=== PATIENT | female | born 1995 | race Caucasian/White ===

== ENCOUNTER 2024-04-24 09:18 | Emergency (ER) | payer OTHER, SELFPAY ==
[2024-04-24 09:26] VITALS: BP 118/59; PULSE 75; RESP 20; TEMP 37; O2SAT 99; BMI 28.3
--- NOTE | 2024-04-24 09:41 | ED.GENADULT ---
HPI - General Adult General Chief complaint: Recheck/Abnormal Lab/Rx Stated complaint: needs methadone dose Time Seen by Provider: 04/24/24 09:40 Source: patient Mode of arrival: ambulatory Limitations: no limitations History of Present Illness ED Provider: KIRILL CHRISTIANSON PA-C HPI narrative: 29 year old female with pmhx significant for polysubstance use presents to the ED today from [facility] requesting methadone dose. She states that she was recently in care home for 4 months. While there, she was started on 100 mg methadone. Her last dose was yesterday prior to her release. She does not have a last dose letter. She states that her referral was sent to the wrong clinic and was unable to be dosed today. She was then brought here by faculty from [facility] in [place] to recieve her dose. She denies any complaints at present. Denies any ilicit substance use. Denies chance of . Related Data Allergies Allergy/AdvReac Type Severity Reaction Status Date / Time No Known Allergies Allergy Verified 04/24/24 09:30 Review of Systems Review of Systems: Yes all other systems are reviewed and are negative [facility] Past Medical History Attestation statement: The following information was validated with the patient. Source: old records reviewed and nursing notes reviewed Social History Social History Advance Directives: No Advance Directives Information Provided: No Physical Exam ED Vital Signs: Vital Signs - 24 hr 04/24/24 09:26 Temperature 98.6 F Pulse Rate 75 Respiratory Rate 20 Blood Pressure 118/59 L Pulse Oximetry 99 Oxygen Delivery Method Room Air BMI result Body Mass Index 28.3 vital signs stable General: Well appearing, in no acute distress. Skin: Warm, dry, intact. No rashes or lesions. Head: Normocephalic, atraumatic. EENT: PERRLA. Moist mucous membranes.? Cardiac: Chest wall symmetric. RRR Lungs: Normal respiratory effort without accessory muscle use. CTA bilaterally Abdomen: Soft, non-tender, non-distended Back: No midline spinous or paraspinal tenderness. No step off deformity. Neuro: AOx3. Normal speech. no tremors. Ambulating with steady gait. Psych: Appropriate mood and affect. Responds appropriately to questions. Medications Administered Discontinued Medications Generic Name Dose Route Start Last Admin Trade Name Freq PRN Reason Stop Dose Admin Methadone HCl 100 mg 04/24/24 10:03 04/24/24 10:18 Methadone Hcl 20 Mg/2 Ml Oral.Conc PO 04/24/24 10:04 100 mg ONCE ONE Administration Medical Decision Making Medical Decision Making [facility] Narrative: 29 year old female with pmhx significant for polysubstance use presents to the ED today from [facility] requesting methadone dose. Vital signs stable. Her physical exam is benign. Plan for methadone dose confirmation and disposition. Differential Diagnosis Differential Diagnoses: The differential diagnosis associated with the presentation includes as above. Admission/Observation Not indicated. Chronic Conditions Patient?s care impacted by: Other (polysubstance abuse) Social Determinants Patient?s care significantly limited by Social Determinants of Health including: Other Social Determinant of Health Critical Care Time Critical Care Time Critical Care Time: No Discharge Plan Discharge Clinical Impression: Methadone dependence Patient Disposition: Home, Self-Care Instructions: Opioid Use Disorder (ED) Additional Instructions: You were seen in the emergency department for methadone dosing. We called and verified your last dose, which is methadone 100 mg, which was last given 04/23/2024. We had given you methadone 100 mg in the department today. Please follow-up with your methadone clinic tomorrow for additional dosing. If any new or worsening symptoms occur, including but not limited to chest pain or shortness a breath, please return for re-evaluation. You may also follow up with our comprehensive care center. They take walk-ins. [facility] [phone] [address] Print Language: Citizen [place]
[2024-04-24] MEDS: methADONE HCl 20 MG/2 ML ORAL.CONC 100 MG PO (10:18)
--- NOTE | 2024-04-24 10:41 | PC.NURSE ---
verification obtained from [facility] and faxed to pharmacy, pt was medicated with methadone and will discharge with last dose letter
[2024-04-24 10:42] VITALS: BP 116/60; PULSE 72; RESP 8; TEMP 36.6; O2SAT 98
--- NOTE | 2024-04-24 12:05 | HE.PHANOTE ---
Re: Methadone Patient confirmed last dose on 04/23/24@1018 for methadone 100 mg daily at [facility].
== END 2024-04-24 10:43 | disposition home or self-care (01) ==
PROVIDERS: Emergency Provider Emergency Medicine
DX: F11.20 Opioid dependence, uncomplicated (principal)
CPT/HCPCS: 99282; 99283